=== PATIENT | male | born 1955 | race Caucasian/White ===

== ENCOUNTER → 2023-04-01 08:28 | Outpatient (REF) | payer OTHER, SELFPAY ==
[2023-04-01 08:44] VITALS: BP 135/91; BP_SYST 75
--- NOTE | 2023-04-01 10:58 | PTCARENOTE ---
pt arrives to IR hypoxic today on 2L nasal cannula chronically. Asept catheter placement cancelled. Right thoracentesis completed and drained 1500mls. Pt still hypoxic off of NRB attempted to wean back to nasal cannula. weaning unsuccessful. pt at
99-100% on NRB. Pt taken to the emergency room by RN to room 39. Report given to Dr. Neville and Zainab Saxena RN. All belongings taken with the patient. family aware. pt stable on transport.
[2023-04-01 11:37] LABS: Body Fluid Second Tech EL; Body Fluid WBC 209 /CUMM
== END ==
LOC: RADI 08:28
PROVIDERS: ATTENDING PHYSICIAN Internal Medicine Hematology & Oncology
DX: J90 Pleural effusion, not elsewhere classified (principal); R09.02 Hypoxemia
CPT/HCPCS: 32555; 71045; 87015; 87070; 87205; 89051